=== PATIENT | female | born 1970 | race Asian ===

== ENCOUNTER 2023-03-09 05:02 | Day surgery (SDC) | payer OTHER ==
[2023-02-19 09:48] VITALS: BMI 19.7
[2023-03-09] MEDS ORDERED: MIDAZOLAM HCL 2 MG/2 ML SINGLE DOSE VIAL ONE (12:08)
[2023-03-09] MEDS ORDERED: FENTANYL CITRATE/PF 50 MCG/ML VIAL ONE (12:08)
[2023-03-09] MEDS ORDERED: MIDAZOLAM HCL 2 MG/2 ML SINGLE DOSE VIAL IVPUSH ONE (12:30)
[2023-03-09 16:44] VITALS: BP 131/81; PULSE 70; RESP 18; TEMP 98.5
== END 2023-03-09 17:45 | disposition home or self-care (01) ==
LOC: JRADIR 05:02
PROVIDERS: ATTEND Internal Medicine Nephrology
PROC: 0TB03ZX Excision of Right Kidney, Percutaneous Approach, Diagnostic (ICD-10-PCS; principal; 2023-03-09)
DX: N05.8 Unspecified nephritic syndrome with other morphologic changes (principal)
CPT/HCPCS: 50200; 76775-TC; 81025; 88300-TC